=== PATIENT | male | born 1940 | race Caucasian/White ===

== ENCOUNTER 2016-09-06 06:48 | Day surgery (SDC) | payer BC ==
[2016-09-01 08:53] LABS: HEMATOCRIT 40.3 % (40.0-51.0); HEMOGLOBIN 13.7 g/dL (13.6-17.8)
[2016-09-01 09:08] LABS: BUN (BLOOD UREA NITROGEN) 23 MG/DL (6-23); CALCIUM, SERUM 8.9 MG/DL (8.5-10.4); CHLORIDE, SERUM 106 MMOL/L (96-112); CO2 (CARBON DIOXIDE) 28 MMOL/L (24-34); CREATININE 1.28 MG/DL (0.70-1.30); GFR AFRICAN AMERICAN 62 ML/MIN (>=60); GFR NON AFRICAN AMERICAN 53 ML/MIN (>=60); GLUCOSE, SERUM 275 MG/DL (60-99); POTASSIUM, SERUM 4.3 MMOL/L (3.5-5.3); SODIUM, SERUM 141 MMOL/L (135-148)
[~2016-09-06 06:48] MED LIST: ALTACE10 MG PO; ASA5GR PO; ASCRIPTIN PO; CIP5 PO; CRESTOR20 MG PO; DSS PO; EFFIENT10 PO; FISH OIL1200 MG PO; FISH-EPA1000 MG PO; GARLIC PO; GARLIFE PO; GLUCCHONDR PO; GLUCOTROL5 PO; GLUCPH PO; GLUCXL2.5 PO; GLUMETZA500 MG PO; LOP25 PO; MCZ125 PO; MIRALAXPKT PO; MULTI-VIT HP OR; MULTIVITAMI1 PO; PCET PO; PERCOCET1 TA2 PO; PLAVIX PO; PRAVACHOL80 MG PO; RAN500 PO; RENEXA PO; TRIPLE FLEX PO; UTA OR; WELLSR150 PO; ZETIA PO; [UNRECOGNIZED DRUG - OTHER] PO; [UNRECOGNIZED DRUG - OTHER] PO
== END 2016-09-06 23:59 | disposition home or self-care (01) ==
LOC: SDC 06:48
PROVIDERS: Urology
DX: N20.1 Calculus of ureter (principal); Z53.9 Procedure and treatment not carried out, unspecified reason
CPT/HCPCS: 80048; 85014; 85018; 93005